=== PATIENT | female | born 1975 | race Caucasian/White ===

== ENCOUNTER 2021-05-15 03:12 | Emergency (ER) | payer BC ==
[~2021-05-15 03:12] MED LIST: OMEPRAZOLE20 MG PO
[2021-05-15 03:49] LABS: HEMOGLOBIN 12.9 gm/dl (12.3-15.3); RED BLOOD COUNT 4.01 M/UL (4.00-5.10); WHITE BLOOD COUNT 7.7 K/UL (4.5-11.0)
[2021-05-15 04:08] LABS: BUN/CREATININE RATIO 20 (0-10)
[2021-05-15] MEDS ORDERED: HYDROCODON-ACE1 EAC4 PO (09:04)
[2021-05-15] MEDS ORDERED: ZOFRAN ODT 4 MG4 MG SL (09:04)
[2021-05-15] MEDS ORDERED: IBUPROFEN600 MG PO (09:04)
== END 2021-05-15 09:23 | disposition home or self-care (01) ==
LOC: ER1 03:12
PROVIDERS: Emergency Medicine
DX: N13.2 Hydronephrosis with renal and ureteral calculous obstruction (principal); Z20.822 Contact with and (suspected) exposure to COVID-19
CPT/HCPCS: 80053; 81001; 83690; 85025; 87086; 96374; 96375; 99284; J1885; J2270; J2405; U0002